=== PATIENT | female | born 1965 | race Two or more races ===

== ENCOUNTER 2023-09-03 15:36 | Outpatient (CLI) | payer OTHER, SELFPAY | END 2023-09-03 15:37 | disposition home or self-care (01) | PROVIDERS: PCP Family Medicine; Visit Provider Family Medicine | DX: Z00.00 Encounter for general adult medical examination without abnormal findings (principal); R10.9 Unspecified abdominal pain; R39.9 Unspecified symptoms and signs involving the genitourinary system | CPT/HCPCS: 80053; 86140; 87086 ==

== ENCOUNTER 2023-09-10 10:11 | Outpatient (CLI) | payer OTHER, SELFPAY ==
--- NOTE | 2023-09-10 11:00 | CRLHL7_ITS ---
For Patients: As a result of the Century Cures Act, medical imaging exams and procedure reports are released immediately into your electronic medical record. You may view this report before your referring provider. If you have questions, please contact your health care provider. Indication: Abdominal pain Technique: Noncontrast CT abdomen and pelvis Please note that all CT scans at this facility use dose modulation, iterative reconstruction, and/or weight-based dosing when appropriate to reduce radiation dose to as low as reasonably achievable. Comparison: 08/20/2022 Findings: Minimal atelectasis in both lung bases. Small hiatal hernia. Noncontrast liver appears normal. Gallbladder absent. Incidental splenule. Spleen is normal in size. Adrenal glands are normal. No renal stone. No hydronephrosis. The pancreas is normal. Ureters normal. Mild vascular calcifications. Uterus and ovaries are normal. No dilated bowel loops. No free air or free fluid. No abscess. No adenopathy. No fracture. Impression: No acute intra-abdominal or intrapelvic pathology. Please note that all CT scans at this facility use dose modulation, iterative reconstruction, and/or weight-based dosing when appropriate to reduce radiation dose to as low as reasonably achievable. Dictated by Jr Johns MD @ 09/10/2023 3:54:39 PM (Electronically Signed)
== END 2023-09-10 10:12 | disposition home or self-care (01) ==
LOC: CT 10:46
PROVIDERS: PCP Family Medicine; Visit Provider Family Medicine
DX: R10.9 Unspecified abdominal pain (principal)
CPT/HCPCS: 74176

== ENCOUNTER 2023-10-12 13:19 | Outpatient (CLI) | payer OTHER, SELFPAY ==
--- NOTE | 2023-10-12 14:00 | US_ITS ---
Final Report Patient: MINDY CHERRY Facility:?[facility] Patient ID:?[id number] Site Patient ID:?[id number]. Site :?[id number] Study:?US Pelvis PELVIS TA & TV-10/12/2023 2:38:55 PM Ordering Physician:?CORNELIA CARL Final Report: CLINICAL HISTORY: Pain TECHNIQUE: 2D carvalho scale ultrasound. In addition color Doppler and spectral Doppler analysis was performed of the pelvis using a transabdominal and transvaginal approach. Comparison: CT 09/10/2023 FINDINGS: On transvaginal imaging, the myometrium has a heterogeneous echotexture. The uterus measures 5.7 x 2.6 x 4.2 cm. The endometrial lining nd measures 2 mm in thickness. Multiple cervical nabothian cysts are present. The right ovary measures 1.9 x 0.9 x 1.1 cm in size and the left ovary measures 1.7 x 0.6 x 1.0 cm. The ovaries demonstrate normal arterial and venous blood flow on color Doppler and spectral Doppler analysis. There are no suspicious fluid collections within the cul-de-sac. IMPRESSION: No uterine fibroid. No ovarian lesion or torsion. No excess pelvic free fluid or adnexal mass. Dictated by Jr Johns MD @ 10/13/2023 6:45:18 AM (Electronic Signature)
== END 2023-10-12 13:20 | disposition home or self-care (01) ==
PROVIDERS: PCP Family Medicine; Visit Provider Obstetrics & Gynecology
DX: R10.2 Pelvic and perineal pain (principal)
CPT/HCPCS: 76830; 76856; 93976